=== PATIENT | male | born 1950 | race Caucasian/White ===

== ENCOUNTER 2017-12-06 21:29 | Emergency (ER) | payer OTHER ==
[~2017-12-06] VITALS: Ht 185.4 cm; Wt 83.2 kg
[2017-12-06 22:51] LABS: HEMATOCRIT 41.1 % (38.0-50.0); HEMOGLOBIN 13.4 G/DL (12.5-16.6); MCH 27.3 PG (29.0-34.0); MCHC 32.6 G/DL (30.0-36.0); MCV 83.7 FL (86-99); PLATELET COUNT 296 K/uL (156-360); RBC DIS.WIDTH-CV 13.7 % (11.8-14.6); RBC DIS.WIDTH-SD 42.3 % (39-53); RED BLOOD COUNT 4.91 M/uL (4.00-5.50); WHITE BLOOD COUNT 20.1 K/uL (4.1-10.2)
[2017-12-06 22:57] LABS: APPEARANCE CLOUDY ((CLEAR)); BILIRUBIN NEGATIVE; BLOOD NEGATIVE; COLOR YELLOW ((YELLOW)); GLUCOSE (STRIP) NEGATIVE; KETONES NEGATIVE; LEUKOCYTES NEGATIVE; NITRITE NEGATIVE; PROTEIN (STRIP) 30; SPECIFIC GRAVITY 1.018 (1.000-1.030); UROBILINOGEN 0.2 MG/DL (0.2-1.0)
[2017-12-06 23:03] LABS: ALBUMIN 4.5 g/dL (3.2-4.8); CHLORIDE 104 mEq/L (99-109); POTASSIUM 4.3 mEq/L (3.7-5.4); SODIUM 138 mEq/L (136-147)
[2017-12-06 23:05] LABS: GLUCOSE 126 mg/dL (70-99)
[2017-12-06 23:06] LABS: TOTAL PROTEIN 7.9 g/dL (6.4-8.3)
[2017-12-06 23:07] LABS: TOTAL BILIRUBIN 0.4 mg/dL (0.0-1.0)
[2017-12-06 23:09] LABS: ALKALINE PHOSPHATASE 53 IU/L (3-129); CREATININE 1.1 mg/dL (0.6-1.3); GFR ESTIMATE (CALCULATED) > 59 mL/min/ (58.99-99999)
[2017-12-06 23:10] LABS: UREA NITROGEN (BUN) 16 mg/dL (9-23)
[2017-12-06 23:11] LABS: AST (GOT) 36 IU/L (2-34)
[2017-12-06 23:12] LABS: ALT (GPT) 38 IU/L (3-49); LIPASE 30 U/L (1.0-51.0)
[2017-12-06 23:13] LABS: AMORPHOUS PHOSPHATE CRYSTALS 1+; BACTERIA 1+ /HPF; EPITHELIAL CELLS RARE /HPF; MUCUS RARE /LPF; RED BLOOD CELLS 0-5 /HPF (0-5); UCUL ADDED? NO; WHITE BLOOD CELLS 0-5 /HPF (0-5)
[2017-12-07] MEDS ORDERED: KEFLEX500 MG PO (02:43)
[2017-12-07] MEDS ORDERED: NAPROSYN500 MG PO (02:43)
[2017-12-07] MEDS ORDERED: ZOFRAN ODT8 MG PO (02:43)
[2017-12-07] MEDS ORDERED: FLOMAX0.4 MG PO (02:44)
[2017-12-07 03:15] VITALS: BP 159/86
== END 2017-12-07 03:16 | disposition home or self-care (01) ==
LOC: EME 21:29 → EXP 21:29
DX: N20.1 Calculus of ureter (principal); D72.829 Elevated white blood cell count, unspecified; R82.71 Bacteriuria; E78.5 Hyperlipidemia, unspecified; Z87.891 Personal history of nicotine dependence
CPT/HCPCS: 74176; 80053; 81003; 83690; 85027; 87086; 99281; 99284; J0696